=== PATIENT | male | born 1955 | race Caucasian/White ===

== ENCOUNTER 2019-03-27 16:18 | Inpatient (IN) | payer OTHER ==
[~2019-03-27] VITALS: Ht 157.5 cm; Wt 92.1 kg
[2019-03-27 16:23] VITALS: BP 136/85
[2019-03-27] MEDS ORDERED: CELEXA 20 MG TA20 MG PO (16:32)
[2019-03-27] MEDS ORDERED: SIMVASTATIN80 MG PO (16:33)
[2019-03-27] MEDS ORDERED: ALLOPURINOL 10100 M3 PO (16:33)
[2019-03-27] MEDS ORDERED: BENAZEPRIL 10 M10 MG PO (16:34)
[2019-03-27] MEDS ORDERED: METFORMIN HCL500 M3 PO (16:34)
[2019-03-27] MEDS ORDERED: LAMICTAL25 MG PO (16:34)
[2019-03-27 16:44] LABS: ABSOLUTE BASOPHILS 0.1 thou/uL (0.0-0.2); ABSOLUTE LYMPHOCYTES 1.8 thou/uL (0.8-5.3); ABSOLUTE MONOCYTES 0.9 thou/uL (0.0-1.2); ABSOLUTE NEUTROPHILS 13.4 thou/uL (1.6-8.1); BASOPHILS 0.4 %; EOSINOPHILS 0.2 %; HEMATOCRIT 43.8 % (42.0-52.0); HEMOGLOBIN 14.9 gm/dL (14.0-18.0); LYMPHOCYTES 11.2 %; MCH 30.1 pg (26.0-34.0); MCV 88.6 fL (80.0-100.0); MONOCYTES 5.8 %; MPV 7.7 fl. (7.2-11.1); NUCLEATED RBCS 0 /100WBC; PLATELET COUNT* 212 thou/uL (150-400); POLYS 82.4 %; RBC 4.95 mil/uL (4.50-6.00); RDW-CV 13.1 % (10.5-14.5); WBC 16.2 thou/uL (4.0-11.0)
[2019-03-27 16:56] LABS: APTT 22.2 Seconds (25.0-31.3); CALCIUM 8.8 mg/dL (8.5-10.1); CREATININE 1.3 mg/dL (0.6-1.3); POTASSIUM 4.2 mmol/L (3.5-5.1); PROTIME 10.1 Seconds (9.20-11.50)
[2019-03-27 17:08] LABS: CK-MB MASS 1.2 ng/mL (<0.5-3.6); MAGNESIUM 1.7 mg/dL (1.8-2.4); TOTAL BILIRUBIN 1.1 mg/dL (<0.1-1.0); TOTAL PROTEIN 7.5 g/dL (6.4-8.2)
[2019-03-27 17:18] LABS: INFLUENZA A ANTIGEN Negative (Negative); INFLUENZA B ANTIGEN Negative (Negative)
[2019-03-27 19:40] VITALS: BP 122/71
[2019-03-27 19:52] VITALS: BP 126/69
[2019-03-27 23:53] VITALS: BP 106/72
[2019-03-28 04:10] VITALS: BP 113/73
[2019-03-28 05:21] LABS: ABSOLUTE EOSINOPHILS 0.1 thou/uL (0.0-0.7); ABSOLUTE LYMPHOCYTES 1.5 thou/uL (0.8-5.3); ABSOLUTE MONOCYTES 0.6 thou/uL (0.0-1.2); ABSOLUTE NEUTROPHILS 5.5 thou/uL (1.6-8.1); BASOPHILS 0.4 %; EOSINOPHILS 1.5 %; HEMATOCRIT 40.2 % (42.0-52.0); HEMOGLOBIN 13.9 gm/dL (14.0-18.0); LYMPHOCYTES 18.8 %; MCH 30.4 pg (26.0-34.0); MCHC 34.7 g/dL (28.0-37.0); MCV 87.8 fL (80.0-100.0); MONOCYTES 7.8 %; MPV 7.8 fl. (7.2-11.1); NUCLEATED RBCS 0 /100WBC; PLATELET COUNT* 200 thou/uL (150-400); POLYS 71.5 %; RBC 4.58 mil/uL (4.50-6.00); WBC 7.8 thou/uL (4.0-11.0)
[2019-03-28 05:45] LABS: CALCIUM 8.5 mg/dL (8.5-10.1); CREATININE 1.2 mg/dL (0.6-1.3); POTASSIUM 3.8 mmol/L (3.5-5.1)
[2019-03-28 08:00] VITALS: BP 117/73
[2019-03-28 08:47] LABS: AMP/METHAMP Negative (Negative); BARBITURATES Negative (Negative); BENZODIAZEPINES Negative (Negative); COCAINE Negative (Negative); METHADONE Negative (Negative); PCP Negative (Negative); THC Negative (Negative)
[2019-03-28 08:55] LABS: OPIATES POSITIVE (Negative)
[2019-03-28 11:09] VITALS: BP 117/67
[2019-03-28 16:37] VITALS: BP 115/71
[2019-03-28 19:50] VITALS: BP 110/60
[2019-03-29] VITALS: BP 109/68
[2019-03-29 04:00] VITALS: BP 120/62
[2019-03-29 08:30] VITALS: BP 114/65
[2019-03-29 09:15] LABS: CHOLESTEROL 187 mg/dL (<200); HDL CHOLESTEROL 39 mg/dL (>40); LDL CHOLESTEROL 117 mg/dL (<100); TC:HDL 4.8 Ratio (Not establshd); TRIGLYCERIDE 157 mg/dL (<150); VLDL 31 mg/dL (<40)
[2019-03-29 09:23] LABS: SERUM ASSESSMENT Clear
--- NOTE | 2019-03-29 10:04 | EKG ---
[place] [address] ELECTROCARDIOGRAM REPORT Name: ALON FIELDSBANDAR Rudolph Room: [address] ADM IN ..#: [id number] Admission: 03/27/19 Attend Phys: Saw Graham MD Discharge: Date of : 57 Report #: [id number] THIS REPORT FOR: //name// [facility] ED Test Date: 2019-03-27 Test Time: 16:23:44 Pat Name: SHERRI FIELDS Department: Room: [facility] Gender: Kier Boiler: MONICA : 1955 Requested By: Jc Corbett Order Number: [id number] MD: Akin Sevilla Measurements Intervals [place] Rate: 101 P: 37 KS: 158 QRS: -11 QRSD: 97 T: 19 QT: 387 QTc: 502 Interpretive Statements Sinus tachycardia RSR' in V1 or V2, right VCD or RVH Inferior infarct, old Prolonged QT interval Compared to ECG 05/28/2005 00:38:04 Prolonged QT interval now present Left ventricular hypertrophy no longer present Myocardial infarct finding still present Electronically Signed On 03-29-2019 10:04:07 [employer] by Akin Sevilla [email or web address] <ELECTRONICALLY SIGNED> By: Akin Sevilla MD, FACC 03/29/19 1004 1623 1623 Akin Sevilla MD, FAC /EPI
[2019-03-29 12:00] VITALS: BP 127/85
--- NOTE | 2019-03-29 16:11 | 2DMMODE ---
[place] [address] 2 D/M-MODE ECHOCARDIOGRAM Name: DONNIESHERRI Ronni Room: [address] IN M.R.#: [id number] Admission: 03/27/19 Attend Phys: Saw Graham, Discharge: Date of : 57 Date of Service: 03/29/19 1610 Report #: [id number] THIS REPORT FOR: //name// APPROVED REPORT Study performed: 03/29/2019 13:43:57 EXAM: Comprehensive 2D, Doppler, and color-flow Echocardiogram BSA: 1.92 HR: 69 bpm Other Information Study Quality: Good Indications Chest Pain 2D Dimensions IVSd: 11.79 (7-11mm) LVOT Diam: 18.68 (18-24mm) LVDd: 41.76 mm PWd: 10.12 (7-11mm) Ascending Ao: 32.09 (22-36mm) LVDs: 28.74 (25-40mm) Aortic Root: 27.02 mm Volumes Left Atrial Volume (Systole) LA ESV Index: 13.40 mL/m2 Aortic Valve AoV Peak Chase.: 0.92 m/s AO Peak Gr.: 3.40 mmHg LVOT Max P.75 mmHg AO Mean Gr.: 1.96 mmHg LVOT Mean P.28 mmHg LVOT Max V: 0.83 m/s AO V2 VTI: 20.25 cm LVOT Mean V: 0.52 m/s TANIKA (VTI): 2.42 cm2 LVOT V1 VTI: 17.89 cm Mitral Valve E/A Ratio: 1.47 MV Decel. Time: 200.98 ms MV E Max Chase.: 0.93 m/s MV PHT: 58.28 ms MVA (PHT): 3.77 [place] [address] 2 D/M-MODE ECHOCARDIOGRAM Name: SHERRI FIELDS Room: [address] IN .R.#: [id number] Admission: 03/27/19 Attend Phys: Saw Graham, Discharge: Date of : 57 Date of Service: 03/29/19 1610 Report #: [id number] TDI E/Lateral E': 10.33 E/Medial E': 10.33 Medial E' Chase.: 0.09 m/s Lateral E' Chase.: 0.09 m/s Pulmonary Valve PV Peak Chase.: 0.86 m/s PV Peak Gr.: 2.94 mmHg Tricuspid Valve RAP Estimate: 5.00 mmHg TR Peak Gr.: 15.17 mmHg RVSP: 20.17 mmHg PA Pressure: 20.17 mmHg Left Ventricle The left ventricle is normal size. There is normal left ventricular wall thickness. Left ventricular systolic function is normal. The left ventricular ejection fraction is within the normal range. LVEF is 55-60%. Right Ventricle The right ventricle is normal size. The right ventricular systolic function is normal. Atria The left atrium size is normal. The right atrium size is normal. Aortic Valve The aortic valve is normal in structure. No aortic regurgitation is present. There is no aortic valvular stenosis. Mitral Valve The mitral valve is normal in structure. There is no mitral valve regurgitation noted. No evidence of mitral valve stenosis. Tricuspid Valve The tricuspid valve is normal in structure. Trace tricuspid regurgitation. Pulmonic Valve The pulmonary valve is normal in structure. There is no pulmonic valvular regurgitation. Great Vessels The aortic root is normal in size. IVC is normal in size and collapses >50% [place] [address] 2 D/M-MODE ECHOCARDIOGRAM Name: SHERRI FIELDS Room: [address] IN [facility]#: [id number] Admission: 03/27/19 Attend Phys: Saw Graham, Discharge: Date of : 57 Date of Service: 03/29/19 1610 Report #: [id number] Pericardium There is no pericardial effusion. <Conclusion> Left ventricular systolic function is normal. The left ventricular ejection fraction is within the normal range. <ELECTRONICALLY SIGNED> By: Akin Sevilla MD, FACC 03/29/191609 09 09 Akin Sevilla MD, FAC /INF
--- NOTE | 2019-03-29 16:30 | CARDNUC ---
[place] [address] CARDIAC NUCLEAR IMAGING REPORT Name: SHERRI FIELDS Ronni Room: [address] IN [facility]#: [id number] Admission: 03/27/19 Attend Phys: Saw Graham, Discharge: Date of : 57 Date of Service: 03/29/19 1629 Report #: [id number] THIS REPORT FOR: //name// APPROVED REPORT Imaging Protocol: Stress Tc-99mm Only Study performed: 03/28/2019 15:41:00 Indication: Chest pain, Dyspnea, Nausea. Patient Location: In-Patient Room #: [facility] Stress Tech: Luci Forbes Stress Nurse: Macey Sorto RN NM Tech:EDGARD Askew Ht: 5 ft 5 in Wt: 202 lbs BSA: 1.99 m2 BMI: 33.61 Medical History Medical History: Angina, Diabetes, Fatigue, HTN, Obesity , SOB, Weakness, Nausea. Medications: NTG, Lisinopril, Metformin, Heparin, Hydralazine. Allergies: Penicillins Cardiac Risk Factors: Age, DM, FHX of CAD, HTN, SOB. Previous Cardiac Procedures: None Pretest Chest Pain Characteristics: No chest pain Exercise History: Indeterminate Physical Disabilities: Weakness/fatigue. Meds Held (24 hrs): NTG, Lisinopril. Pharmacologic Stress Pharmacologic stress test was performed by injecting Regadenoson 0.4 mg IV push over 10-15 seconds immediately followed by the intravenous injection of 32.1 mCi of Tc-99m Sestamibi. Time of stress injection: 1200 Date: 03/29/2019 Administration Route: IV Administration Site: Right AC Gated Stress SPECT was performed 40 minutes after stress injection. The images were gated to evaluate regional wall motion and calculate left ventricular ejection fraction. Prone imaging was performed. [place] [address] CARDIAC NUCLEAR IMAGING REPORT Name: SHERRI FIELDS Room: [address]#: [id number] Admission: 03/27/19 Attend Phys: Saw Graham, Discharge: Date of : 57 Date of Service: 03/29/19 1629 Report #: [id number] Stress Test: Pharmacologic stress was paired with low level exercise. Reason for pharmacologic stress test: Weakness/fatigue.. HR Max Heart Rate (APMHR): 158 bpm Resting HR: 78 bpm Target HR (85% APMHR): 134 bpm Max HR Achieved: 136 bpm % of APMHR: 86 Recovery HR: 95 bpm BP Resting BP: 141/83 mmHg Max BP: 184/115 mmHg Recovery BP: 172/103 mmHg ECG Resting ECG: Sinus Rhythm Stress ECG: Sinus Tachycardia ST Change: None Arrhythmia: None Recovery ECG: Sinus Rhythm Recovery ST Change: None Recovery Arrhythmia: None Clinical Reason for Termination: Completed protocol, Maximal effort Stress Symptoms: Dyspnea, Leg Fatigue Exercise duration: 4 min 00 sec Exercise capacity: 2.30 METs The patient tolerated Lexiscan infusion without significant cardiac symptoms. Nurse Comments A 63 year old male inpatient presented for a walking Lexiscan Nuclear Stress Test r/t recent CP, dyspnea and nausea. Recovery unremarkable with PO caffeine, effective. Patient was escorted via wheelchair by staff to Nuclear Medicine for imaging. Patient was stable and stated he felt good at that time. Stress ECG Conclusion The baseline 12-lead EKG shows sinus rhythm without significant ST segment abnormality. EKGs obtained during and post walking Lexiscan protocol showed sinus rhythm and sinus tachycardia with no significant ST segment or T-wave abnormalities when compared to baseline. There were no stress-induced arrhythmias[place] [address] CARDIAC NUCLEAR IMAGING REPORT Name: SHERRI FIELDS Room: [address]#: [id number] Admission: 03/27/19 Attend Phys: Saw Graham, Discharge: Date of : 57 Date of Service: 03/29/19 1629 Report #: [id number] Study: Good Artifact: No artifact Study Data Post stress, the left ventricular ejection was 64%.. Perfusion Post stress myocardial perfusion images show uniform uptake of the radioisotope throughout the myocardium without defect. Wall Motion Normal left ventricular wall motion. Nuclear Conclusion ECG Findings: negative for ischemia Clinical Findings: negative for ischemia Nuclear Findings: negative for ischemia Exercise Capacity: not assessed Left Ventricular Function: normal Risk Study: low Myocardial perfusion images show no defect to suggest infarct or ischemia. Left ventricular systolic function is normal on gated studies. This is a low risk study. <Conclusion> The baseline 12-lead EKG shows sinus rhythm without significant ST segment abnormality. EKGs obtained during and post walking Lexiscan protocol showed sinus rhythm and sinus tachycardia with no significant ST segment or T-wave abnormalities when compared to baseline. There were no stress-induced arrhythmias. <ELECTRONICALLY SIGNED> By: Jesus Moore MD, FACC 03/29/19 1629 1629 1629 Jesus Moore MD, FACC /INF
[2019-03-29 18:55] VITALS: BP 127/85
--- NOTE | 2019-04-01 15:10 | CON ---
[address] [address] CONSULTATION Name: SHERRI FIELDS Ronni Room: [address] IN M.R.#: [id number] Admission: 03/27/19 Attend Phys: Saw Graham MD Discharge: 03/29/19 Date of : 57 Report #: [id number] THIS REPORT FOR: //name// CC: Saw JACOBS MD DATE OF SERVICE: 03/28/2019 HISTORY OF PRESENT ILLNESS: The patient is a 63-year-old gentleman with risk factors including diabetes, dyslipidemia and hypertension, who was admitted to the hospital with complaints of ongoing chest pain yesterday. Cardiac enzymes x 3 sets were unremarkable. EKG did not show any significant abnormalities. The patient is comfortable at the time of my interview. Yesterday, he reported midsternal chest discomfort with radiation to the shoulders bilaterally associated with some mild shortness of breath, nausea, but no diaphoresis. The pain persisted for several hours. The patient was seen in the Emergency Room. At that time, EKG and enzymes were unremarkable. The pain has gradually resolved. He has been pain-free overnight. He reports having similar symptoms on and off for the past 2-3 months. He has had no formal cardiac evaluation in the past. He denies any prior significant cardiac history. PAST MEDICAL HISTORY: 1. Type 2 diabetes mellitus. 2. Hypertension. 3. Dyslipidemia. ALLERGIES: PENICILLIN. HOME MEDICATIONS: Citalopram 20 mg daily, allopurinol 300 mg daily, simvastatin 40 mg daily, benazepril 10 mg daily, Lamictal 25 mg b.i.d., metformin 500 mg daily. FAMILY HISTORY: Positive for coronary artery disease in his paternal uncles. SOCIAL HISTORY: The patient is a lifelong nonsmoker. He drinks alcohol rarely. REVIEW OF SYSTEMS: A 14-point review of systems is positive for chest discomfort as outlined above. He has type 2 diabetes mellitus. He has a remote history of ulcers. He reports a remote history of dysuria and hematuria. He reports PENICILLIN allergy. He reports arthritis without connective tissue disease. He has some rash of the right foot. He wears glasses without acute visual changes. He has decreased hearing. Otherwise, 14-point review of [place] [address] CONSULTATION Name: SHERRI FIELDS Room: [address]#: [id number] Admission: 03/27/19 Attend Phys: Saw Graham MD Discharge: 03/29/19 Date of : 57 Report #: [id number] PHYSICAL EXAMINATION: VITAL SIGNS: Blood pressure 117/67, pulse 72. GENERAL: This is a pleasant gentleman who is in no distress. Mood and affect appropriate. HEENT: The patient is wearing glasses. Extraocular muscles intact. Mucous membranes are moist. NECK: Shows no jugular venous distention. There are no carotid bruits. CHEST: Reveals all lung orozco to be clear without wheezes or rales. CARDIOVASCULAR: Reveals a regular rhythm with normal S1 and S2. I do not appreciate gallop or murmur. ABDOMEN: Reveals normal bowel sounds. The abdomen is soft and nontender. EXTREMITIES: Shows no edema. Peripheral pulses are 2+ and palpable. SKIN: Dry. LABORATORY DATA: A 12-lead EKG shows sinus rhythm with no significant ST or T-wave abnormality. Cardiac enzymes are negative x 3 sets. IMPRESSION AND RECOMMENDATIONS: 1. Chest discomfort in a patient with multiple risk factors for coronary artery disease. We will proceed with noninvasive stress testing and echocardiogram. Further evaluation will be pending the results of that study. 2. Diabetes, treatment per hospitalist. 3. Hypertension appears to be adequately controlled. 4. Dyslipidemia. Continue current statin agent. I would recommend an LDL cholesterol 70 or less. We will check fasting lipid profile in a.m. <ELECTRONICALLY SIGNED> By: Jesus Moore MD, FACC 04/01/19 1510 1545 0007Jesus Moore MD, FACC /nt
== END 2019-03-29 19:20 | disposition home or self-care (01) | DRG 311 ==
LOC: M.ERS 16:18 → M.2W 17:37 → M.TBA-ER 17:37 → M.2W 19:40
PROVIDERS: Family Medicine; Registered Nurse; ADMIT Internal Medicine
DX: I20.0 Unstable angina (principal); E78.5 Hyperlipidemia, unspecified; E11.9 Type 2 diabetes mellitus without complications; I10 Essential (primary) hypertension; D72.829 Elevated white blood cell count, unspecified; Z79.84 Long term (current) use of oral hypoglycemic drugs; Z79.899 Other long term (current) drug therapy; Z88.0 Allergy status to penicillin; Z82.49 Family history of ischemic heart disease and other diseases of the circulatory system; Z72.89 Other problems related to lifestyle; Z90.49 Acquired absence of other specified parts of digestive tract